=== PATIENT | female | born 1990 | race Two or more races ===

== ENCOUNTER 2018-06-30 00:43 | Emergency (ER) | payer MEDICAID, OTHER ==
[~2018-06-30] VITALS: Ht 162.6 cm; Wt 90.7 kg
[2018-06-30 00:48] VITALS: BP 110/83
== END 2018-06-30 01:16 | disposition left against medical advice (07) ==
LOC: EDBD 00:43 → ER 00:43
DX: R51 Headache (principal); Z53.21 Procedure and treatment not carried out due to patient leaving prior to being seen by health care provider